=== PATIENT | male | born 1985 | race Caucasian/White ===

== ENCOUNTER → 2017-04-29 | Outpatient (CLI) | payer OTHER ==
[~2017-04-29] MED LIST: BENTYL20 MG PO; CIPRO500 MG PO; FLEXERIL10 MG PO; LOMOTIL TABLET1 EACH PO; MOBIC7.5 MG PO; MOTRIN800 MG PO; NAPROSYN500 MG PO; NO HOME MEDS; NORCO 5/3251 TABLET PO; PEN-VEE K,VEET500 MG PO; PROMETHAZINE HC25 M1 PO; VALIUM5 MG PO; ZOFRAN ODT4 MG PO
== END | disposition home or self-care (01) ==
LOC: CDC 15:31
DX: R00.1 Bradycardia, unspecified (principal)
CPT/HCPCS: 93000

== ENCOUNTER 2018-02-11 10:15 | Emergency (ER) | payer OTHER ==
[~2018-02-11] VITALS: Ht 185.4 cm; Wt 92.8 kg
[2018-02-11] MEDS ORDERED: BACTROBAN OINTM22 GM TP (11:35)
[2018-02-11] MEDS ORDERED: KEFLEX500 MG PO (11:35)
[2018-02-11 12:20] VITALS: BP 134/74
== END 2018-02-11 12:21 | disposition home or self-care (01) ==
LOC: EME 10:15
DX: L03.90 Cellulitis, unspecified (principal); Z77.098 Contact with and (suspected) exposure to other hazardous, chiefly nonmedicinal, chemicals; F17.200 Nicotine dependence, unspecified, uncomplicated; Z88.2 Allergy status to sulfonamides
CPT/HCPCS: 99281; 99284